=== PATIENT | male | born 1960 | race Caucasian/White ===

== ENCOUNTER → 2020-07-12 | Day surgery (SDC) | payer BC ==
[~2020-07-12] MED LIST: Ketamine 200 MG/20 ML MDV IV ONE; Midazolam 1 MG/ML 2 ML SDV IV ONE; Phenylephrine 1% 10 MG/ML SDV IV ONE; Propofol 200 MG/20 ML SDV IV ONE; fentaNYL 100 MCG/2 ML SDV IV ONE
[2020-07-12] MEDS: Lactated Ringers 1,000 ML IV SCH (09:25)
[2020-07-12 11:13] VITALS: BP 126/73; PULSE 55
--- NOTE | 2020-07-15 11:28 | OR ---
DATE OF OPERATION: 07/12/2020 PREOPERATIVE DIAGNOSIS: 1. CHRONIC GASTROESOPHAGEAL REFLUX DISEASE. 2. HISTORY OF COLON POLYPS. POSTOPERATIVE DIAGNOSIS: 1. CHRONIC GASTROESOPHAGEAL REFLUX DISEASE. 2. HISTORY OF COLON POLYPS. SURGEON: Mike Guevara MD PROCEDURE: 1. DIAGNOSTIC ESOPHAGOGASTRODUODENOSCOPY WITH BIOPSIES X2, PAZ. 2. FULL-LENGTH COLONOSCOPY WITH FORCEPS POLYPECTOMY X2. ANESTHESIA: MAC. COMPLICATIONS: None. SPECIMEN: 1. Duodenal bulb biopsy x1. 2. Antral biopsy. 3. Antral PAZ. 4. Two small tubular adenomas, sigmoid colon. RECOMMENDATIONS: The patient should have a routine followup colonoscopy in 5 years. He can have EGD on an as needed basis at this point. INDICATIONS: The patient has a history of chronic GERD and prior hiatal hernia repair. He has had esophageal dilatations in the past. He was sent for a surveillance EGD. He also has a history of colonoscopies with polyps removed in the past and he is due for 3-year followup. Briseida Cast sent him for both. DESCRIPTION OF PROCEDURE: The patient was prepped and draped, placed in the left lateral decubitus position. A lubricated Olympus gastroscope was inserted over a bit, advanced to cricopharyngeus area and easily intubated into the esophagus. The esophageal lining was benign in its entire course. The Z-line was crisp and sharp at 40 cm. There was no spontaneous reflux visualized. Not signs of distal esophagitis stricturing, ulceration, or Martínez's changes. The scope was advanced into the stomach, through the pylorus, and into the second portion of the duodenal bulb. This was benign. The duodenal bulb had some very mild inflammatory change. We did do a biopsy of it. The scope was brought back into the stomach and retroflexed. The upper fundus and cardia were unremarkable. The patient's wrap looks fine. No signs of any lesions in the upper fundus or cardia. Upon straightening, the rest of the fundus was unremarkable. There appears to be some mild chronic gastritis of the antrum and we did do a biopsy of that along with a CLOtest. No other masses or lesions were seen. The air was suctioned and the scope removed without complication. A lubricated Olympus colonoscope was then inserted and with ease advanced to the cecum. Direct visualization of the ileocecal valve and appendiceal orifice was accomplished. The bowel prep was adequate. A lot of liquid stool, but all was able to be suctioned. Upon withdrawal of the scope, the cecum, ascending and transverse colon were benign. In the distal portion of the descending colon or proximal sigmoid colon, the patient had a small tubular adenoma approximately 3 to 4 mm, removed in its entirety with a forceps biopsy x2. The second polyp was around 50 cm in the mid sigmoid colon, also removed with a forceps biopsy x2. No signs of any diverticula, colitis, or vascular abnormalities. The rectal vault was unremarkable. Retroflexion of the scope in the rectum showed no anal lesions. Air was suctioned, scope removed without complication. GREGG/CHANO /[id number]
== END ==
LOC: CC.SDS 09:02
PROVIDERS: ATTEND Family Medicine
DX: Z12.11 Encounter for screening for malignant neoplasm of colon (principal); D12.5 Benign neoplasm of sigmoid colon; K29.50 Unspecified chronic gastritis without bleeding; K52.81 Eosinophilic gastritis or gastroenteritis; K21.9 Gastro-esophageal reflux disease without esophagitis; K31.89 Other diseases of stomach and duodenum; F17.210 Nicotine dependence, cigarettes, uncomplicated; E78.2 Mixed hyperlipidemia; M85.80 Other specified disorders of bone density and structure, unspecified site; R35.1 Nocturia; Z98.890 Other specified postprocedural states; Z86.010 Personal history of colon polyps; Z79.899 Other long term (current) drug therapy
CPT/HCPCS: 43239; 45380; 87081; J2250; J2370; J2704; J3010; J7120

== ENCOUNTER 2023-11-22 13:34 | Observation (INO) | payer BC ==
[2023-11-22 14:16] LABS: APPEARANCE,URINE CLEAR (CLEAR); BASOPHILS ABSOLUTE AUTO 0.01 10^3/uL (0.00-0.50); BASOPHILS PERCENT AUTO 0.1 % (0-1); BILIRUBIN,URINE SMALL (NEGATIVE); COLOR,URINE DARK YELLOW (YELLOW); EOSINOPHILS ABSOLUTE AUTO 0.01 10^3/uL (0.00-1.50); EOSINOPHILS PERCENT AUTO 0.1 % (0-6); GLUCOSE,URINE NEGATIVE (NEGATIVE); HEMATOCRIT 42.7 % (42.0-52.0); HEMOGLOBIN 14.4 g/dL (14.0-18.0); IMMATURE GRAN ABSOLUTE AUTO 0.01 10^3/uL (0.00-0.49); IMMATURE GRAN PERCENT AUTO 0.1 % (0.0-4.9); KETONES,URINE NEGATIVE (NEGATIVE); LEUKOCYTE ESTERASE,URINE NEGATIVE (NEGATIVE); LYMPHOCYTES ABSOLUTE AUTO 1.18 10^3/uL (0.60-5.00); LYMPHOCYTES PERCENT AUTO 16.5 % (24-44); MEAN CORPUSCULAR HEMOGLOBIN 33.9 pg (27.0-32.0); MEAN CORPUSCULAR HGB CONC 33.7 g/dL (32.0-36.0); MEAN CORPUSCULAR VOLUME 100.5 fL (83.0-97.0); MONOCYTES ABSOLUTE AUTO 0.85 10^3/uL (0.00-1.50); MONOCYTES PERCENT AUTO 11.9 % (0-10); NEUTROPHILS PERCENT AUTO 71.3 % (41-71); NITRITE,URINE NEGATIVE (NEGATIVE); OCCULT BLOOD,URINE TRACE-INTACT (NEGATIVE); PH,URINE 5.5 (4.5-8.0); PLATELET COUNT,PLT 157 10^3/uL (150-400); PROTEIN,URINE 100 mg/dL (NEGATIVE); RED BLOOD CELL COUNT 4.25 x10^6/uL (4.50-6.00); UROBILINOGEN,URINE 0.2 EU/dL (0.2-1.0); WHITE BLOOD CELL COUNT,WBC 7.2 10^3/uL (4.0-11.0)
[2023-11-22 14:24] LABS: BACTERIA,URINE FEW /HPF (NOT SEEN); MUCUS,URINE MANY /HPF (NOT SEEN); RBC,URINE 0-5 /HPF (0-5); SQUAMOUS EPITHELIAL CELLS,UR OCCASIONAL /HPF (NOT SEEN); WBC,URINE 0-5 /HPF (0-5)
[2023-11-22 14:26] LABS: BLOOD UREA NITROGEN,BUN 16 mg/dL (7-18); C-REACTIVE PROTEIN 2.37 mg/dL (<=0.50); CALCIUM 8.2 mg/dL (8.4-10.1); CARBON DIOXIDE,CO2 24 mmol/L (21-32); CHLORIDE,CL 100 mEq/L (98-106); CREATININE 1.7 mg/dL (0.7-1.3); GLUCOSE RANDOM 106 mg/dL (75-99); POTASSIUM,K 4.1 mEq/L (3.5-5.0); SODIUM,NA 133 mEq/L (136-145)
[2023-11-22 14:39] LABS: ESTIMATED GFR 45 mL/min (>=60)
[2023-11-22] MEDS ORDERED: Ondansetron 4 MG/2 ML SDV IV PRN (15:22)
[2023-11-22] MEDS ORDERED: Acetaminophen 325 MG Tab PO PRN (15:22)
[2023-11-22] MEDS ORDERED: Docusate Sodium 100 MG Cap PO PRN (15:22)
[2023-11-22] MEDS ORDERED: Polyethylene Glycol 3350 Powder 17 GM Packet PO PRN (15:22)
[2023-11-22] MEDS ORDERED: Ondansetron 4 MG Tab.DIS PO PRN (15:22)
[2023-11-22] MEDS ORDERED: Albuterol/Ipratropium 3.0-0.5 MG/3 ML Neb Soln NEB PRN (15:54)
[2023-11-22] MEDS ORDERED: Azithromycin 250 MG Tab PO ONE (15:54)
[2023-11-22] MEDS ORDERED: methylPREDNISolone Sodium Succinate 40 MG/1 ML SDV IVPUSH ONE (16:00)
[2023-11-22] MEDS: Sodium Chloride 0.9% 1,000 ML IV SCH ×2 (16:17→23:54)
[2023-11-22 16:41] LABS: CORONAVIRUS COVID-19 NAA NEGATIVE (NEGATIVE); INFLUENZA A NAA NEGATIVE (NEGATIVE); INFLUENZA B NAA NEGATIVE (NEGATIVE); RESPIRATORY SYNCYTIAL VIR NAA NEGATIVE (NEGATIVE)
[2023-11-22] MEDS ORDERED: Ibuprofen 200 MG Tab PO ONE ×2 (17:43→17:48)
[2023-11-23] MEDS ORDERED: Levothyroxine 125 MCG Tab PO SCH (07:00)
[2023-11-23 07:50] LABS: HEMATOCRIT 39.2 % (42.0-52.0); HEMOGLOBIN 13.1 g/dL (14.0-18.0); IMMATURE GRAN ABSOLUTE AUTO 0.06 10^3/uL (0.00-0.49); IMMATURE GRAN PERCENT AUTO 0.9 % (0.0-4.9); LYMPHOCYTES ABSOLUTE AUTO 0.83 10^3/uL (0.60-5.00); LYMPHOCYTES PERCENT AUTO 12.8 % (24-44); MEAN CORPUSCULAR HEMOGLOBIN 33.8 pg (27.0-32.0); MEAN CORPUSCULAR HGB CONC 33.4 g/dL (32.0-36.0); MONOCYTES ABSOLUTE AUTO 0.85 10^3/uL (0.00-1.50); MONOCYTES PERCENT AUTO 13.1 % (0-10); NEUTROPHILS ABSOLUTE AUTO 4.74 x10^3/uL (1.80-8.00); NEUTROPHILS PERCENT AUTO 73.2 % (41-71); PLATELET COUNT,PLT 147 10^3/uL (150-400); RED BLOOD CELL COUNT 3.88 x10^6/uL (4.50-6.00); WHITE BLOOD CELL COUNT,WBC 6.5 10^3/uL (4.0-11.0)
[2023-11-23] MEDS: Sodium Chloride 0.9% 1,000 ML IV SCH (07:53)
[2023-11-23] MEDS ORDERED: atorvaSTATin 20 MG Tab PO SCH (08:00)
[2023-11-23] MEDS ORDERED: Pantoprazole 40 MG Tab.CR PO SCH (08:00)
[2023-11-23] MEDS ORDERED: methylPREDNISolone Sodium Succinate 40 MG/1 ML SDV IVPUSH SCH (08:00)
[2023-11-23 08:01] LABS: ALBUMIN 2.9 g/dL (3.4-5.0); BILIRUBIN TOTAL 0.5 mg/dL (0.0-1.0); CALCIUM 7.7 mg/dL (8.4-10.1); CREATININE 1.4 mg/dL (0.7-1.3); EST CRCL DRUG DOSING (CG) 52.25 mL/min; MAGNESIUM 1.9 mg/dL (1.8-2.4); POTASSIUM,K 4.2 mEq/L (3.5-5.0); PROTEIN TOTAL,TP 6.5 g/dL (6.4-8.2)
[2023-11-23 08:13] VITALS: BP 119/59; PULSE 49
[2023-11-23 10:09] LABS: APPEARANCE,URINE CLEAR (CLEAR); BILIRUBIN,URINE NEGATIVE (NEGATIVE); COLOR,URINE YELLOW (YELLOW); GLUCOSE,URINE NEGATIVE (NEGATIVE); KETONES,URINE NEGATIVE (NEGATIVE); LEUKOCYTE ESTERASE,URINE NEGATIVE (NEGATIVE); NITRITE,URINE NEGATIVE (NEGATIVE); OCCULT BLOOD,URINE NEGATIVE (NEGATIVE); PH,URINE 5.5 (4.5-8.0); PROTEIN,URINE 30 mg/dL (NEGATIVE); UROBILINOGEN,URINE 0.2 EU/dL (0.2-1.0)
[2023-11-23 10:18] LABS: BACTERIA,URINE FEW /HPF (NOT SEEN); RBC,URINE NOT SEEN /HPF (0-5); SQUAMOUS EPITHELIAL CELLS,UR OCCASIONAL /HPF (NOT SEEN); WBC,URINE 0-5 /HPF (0-5)
[2023-11-23 10:47] LABS: T4 FREE 1.2 ng/dL (0.8-1.6); TSH ULTRASENSITIVE 0.18 uIU/mL (0.36-5.60)
[2023-11-23] MEDS ORDERED: Enoxaparin 40 MG/0.4 ML Syringe SUBCUT SCH (12:00)
[2023-11-23] MEDS ORDERED: Azithromycin 250 MG Tab PO SCH (16:00)
== END 2023-11-23 11:15 | disposition home or self-care (01) ==
LOC: CC.FCMC 13:34 → CC.MS 13:34 → UNDOADMOB 15:12 → CC.MS 15:22
PROVIDERS: ADMIT Nurse Practitioner; ATTEND Nurse Practitioner
DX: R50.9 Fever, unspecified (principal); R05.9 Cough, unspecified; J06.9 Acute upper respiratory infection, unspecified; N17.9 Acute kidney failure, unspecified; R07.9 Chest pain, unspecified; Z20.822 Contact with and (suspected) exposure to COVID-19; Z79.899 Other long term (current) drug therapy
CPT/HCPCS: 0241U; 36415; 71046; 80048; 80053; 81001; 83605; 83735; 84439; 84443; 84484; 85025; 85379; 86140; 87040; 87804; 93005; 93010; 94640; 96361; 96374; 96376; 99223; 99238; A9270-GY; G0378; J2920; J7030; J7620-GY; U0002